=== PATIENT | male | born 1990 | race Caucasian/White ===

== ENCOUNTER 2024-08-08 18:58 | Emergency (ER) | payer SELFPAY ==
[~2024-08-08] VITALS: Ht 170.2 cm; Wt 104.0 kg
[2024-08-08 19:02] VITALS: O2SAT 97
[2024-08-08 19:52] VITALS: BP 138/87; PULSE 94; RESP 14; TEMP 36.8; O2SAT 95
[2024-08-08] MEDS ORDERED: IBUP-2029 MT (20:14)
== END 2024-08-08 20:18 | disposition home or self-care (01) ==
LOC: ER 18:58
DX: K62.89 Other specified diseases of anus and rectum (principal)
CPT/HCPCS: 99282